=== PATIENT | male | born 1965 | race American Indian/Alaskan Native ===

== ENCOUNTER 2020-04-26 15:42 | Emergency (ER) | payer SELFPAY ==
[2020-04-26 15:55] VITALS: BP 154/92
--- NOTE | 2020-04-26 17:33 | Emergency Department Report ---
Chief Complaint: Allergic Reaction Stated Complaint: SAYS HES HERE FOR [place] Time Seen by Provider: 04/26/20 16:59 - HPI History of Present Illness: Patient is a 55-year-old male presents emergency room with complaints of itching/watering eyes that began a couple days ago. He states that he also has rhinorrhea and itching to his face. He denies any rash, shortness of breath, difficulty swallowing, facial swelling. He states that he does get seasonal allergies. He states that this happened around the same time last year. He is not currently on any allergy medication. He has a past medical history of asthma. No allergies medications. VSS on exam: Non toxic appearing, no acute distress atraumatic, normocephalic normal appearance of the eyes, PERRL, EOMI, no periorbital edema or ecchymosis moist mucus membranes, uvula is midline, no uvular edema or deviation, no angioedema regular heart rate and rhythm, no gallops, no rubs, no murmurs breath sounds are clear bilaterally, no w/r/r A&O x4, no focal neuro deficit skin is warm, dry, intact, no rash Patient is presenting with symptoms most likely related to allergies He has no shortness of breath, no difficulty swallowing, no rash, no signs of angioedema Discussed [id number] treatments with patient Discussed primary care follow-up Discussed strict return precautions Medical screen examination performed there is no threat to life or limb at this time - Exam Vital Signs: Vital Signs 04/26/20 15:51 Temperature 98.1 F Pulse Rate 91 H Respiratory 17 Rate Blood Pressure 154/92 O2 Sat by Pulse 99 Oximetry MSE screening note: Focused history and physical exam performed. ED Disposition for MSE Clinical Impression: Allergies Qualifiers: Encounter type: initial encounter Qualified Code(s): T78.40XA - Allergy, unspecified, initial encounter Disposition: Z MED SCREENING EXAM-LEFT Is pt being admited?: No Does the pt Need Aspirin: No Condition: Stable Instructions: Allergies (ED) Additional Instructions: May use [id number] medications to help treat your symptoms. Take Claritin, use Flonase nasal spray, use Zaditor eyedrops. Follow-up with a primary care doctor for reexamination. Return to emergency room for any new or worsening symptoms. Referrals: ANDREE NICOLAS MD [Staff Physician] - 2-3 Days [facility] [Provider Group] - 2-[address] [facility] [place] [Outside] - 2-3 Days Time of Disposition: 17:32 Print Language: MONGOLIAN
== END 2020-04-26 17:50 | disposition left against medical advice (07) ==
LOC: ED 15:42
DX: Z53.21 Procedure and treatment not carried out due to patient leaving prior to being seen by health care provider (principal)